=== PATIENT | female | born 1965 | race Caucasian/White ===

== ENCOUNTER 2020-11-29 13:30 | Emergency (ER) | payer OTHER ==
[~2020-11-29] VITALS: Ht 167.6 cm; Wt 122.7 kg
[2020-11-29] MEDS ORDERED: BUPROPION100 MG PO (13:41)
[2020-11-29] MEDS ORDERED: LISINOP/HCTZ1 TAB PO (13:41)
[2020-11-29] MEDS ORDERED: VITAMIN D PO (13:42)
[2020-11-29] MEDS ORDERED: MULTI VIT PO (13:42)
[2020-11-29] MEDS ORDERED: VITAMI16 PO (13:42)
[2020-11-29 14:01] LABS: HEMATOCRIT 43.9 % (37.0-47.0); HEMOGLOBIN 13.7 g/dl (12.0-16.0); IMMATURE GRANULOCYTES 0.3 % (0.0-5.0); MEAN CELL VOLUME 86.8 fL CALC (80.0-100.0); MEAN CORPUSCULAR HGB 27.1 pG CALC (26.0-32.0); MEAN CORPUSCULAR HGB CONC 31.2 g/dL CAL (32.0-36.0); NEUT# 8.78 thou/uL (2.00-7.15); RED BLOOD COUNT 5.06 mill/uL (4.20-5.60)
[2020-11-29 14:18] LABS: ALBUMIN 4.2 g/dL (3.2-5.0); ALKALINE PHOSPHATASE 138 u/l (38-126); ANION GAP 12 (6-22 (CALC)); BILIRUBIN, TOTAL 0.6 mg/dL (0.0-1.4); BUN 13 mg/dL (7-17); BUN/CREATININE RATIO 22 (12-20 (CALC)); CARBON DIOXIDE 24 mmol/l (22-30); CHLORIDE 103 mmol/l (95-108); CREATININE 0.6 mg/dL (0.5-1.0); GFR > 60 ML/MIN (>=60 (CALC)); GFR FOR AFR.AMER. > 60 ML/MIN (>=60 (CALC)); LIPASE 51 u/l (23-300); POTASSIUM 3.8 mmol/l (3.5-5.1); SGOT/AST 29 u/l (14-36); SODIUM 135 mmol/l (137-146); TOTAL PROTEIN 8.1 g/dL (6.3-8.2)
[2020-11-29 15:05] VITALS: BP 134/80
== END 2020-11-29 15:05 | disposition home or self-care (01) | DRG 556 ==
LOC: ED 13:30
PROVIDERS: Family Medicine
DX: M79.602 Pain in left arm (principal); V43.52XA Car driver injured in collision with other type car in traffic accident, initial encounter